=== PATIENT | male | born 1970 | race African-American/Black ===

== ENCOUNTER 2017-06-20 21:26 | Emergency (ER) | payer SELFPAY ==
[~2017-06-20] VITALS: Ht 170.2 cm; Wt 102.1 kg
--- NOTE | 2017-06-20 22:05 | ED Cough/URI ---
General Chief Complaint: Cough/Cold/Flu Symptoms Stated Complaint: HEADACHE Source: patient, spouse Exam Limitations: no limitations History of Present Illness Time seen by provider: 21:55 Initial Comments Patient has ER by private conveyance with his significant other and a chief complaint of 3 days now of nagging headache, dry nonproductive cough, nasal congestion, ears popping feeling underwater but denies facial pain, use of lisinopril or and ARB, nausea, chest pain, shortness of breath, fever, diarrhea , rash. There is a child home who is sick with similar symptoms and was told he has a cold. Allergies and Home Medications Allergies Coded Allergies: iodine (Verified Allergy, Unknown, 06/20/17) Constitutional: chills, No diaphoresis, dizziness, No fever, malaise EENTM: No ear discharge, No hearing loss, No ear pain, No double vision, No eye pain Respiratory: see HPI, cough, No short of breath Cardiovascular: No chest pain, No edema, No palpitations Gastrointestinal: No abdominal pain, No constipation, No nausea, No vomiting Genitourinary: No discharge, No dysuria Musculoskeletal: No back pain, No joint pain, No joint swelling Skin: No pruritus, No rash Psychiatric/Neurological: See HPI, Headache, Denies Numbness, Denies Paresthesia Past Jaxjipw-Czzjxg-Phochd Hx Patient Social History Alcohol Use: Denies Use Recreational Drug Use: No Smoking Status: Never a Smoker Recent Foreign Travel: No Contact w/Someone Who Travel: No Physical Exam Vital Signs Capillary Refill : General Appearance: WD/WN, no apparent distress Eyes: Bilateral Eye Normal Inspection, Bilateral Eye PERRL, Bilateral Eye EOMI HEENT: PERRL/EOMI, pharynx normal, TM abnormal (R) (scant injection with clear mucoid effusion), TM abnormal (L) (scant injection with clear mucoid effusion) Neck: non-tender, normal inspection, lymphadenopathy (R) (shotty), lymphadenopathy (L) (shotty) Respiratory: chest non-tender, lungs clear, normal breath sounds Cardiovascular: normal peripheral pulses, regular rate, rhythm, no edema Gastrointestinal: normal bowel sounds, non tender, soft Extremities: normal range of motion, normal capillary refill Neurologic/Psychiatric: alert, oriented x 3 Skin: normal color, warm/dry Departure Impression Impression: Primary Impression: Upper respiratory infection Qualified Codes: J06.9 - Acute upper respiratory infection, unspecified; B97.89 - Other viral agents as the cause of diseases classified elsewhere Additional Impression: Otitis media with effusion Qualified Codes: H65.93 - Unspecified nonsuppurative otitis media, bilateral Disposition: 01 HOME, SELF-CARE Condition: Stable Departure-Patient Inst. Decision time for Depature: 22:03 Referrals: NO,LOCAL PHYSICIAN (PCP/Family) Primary Care Physician Patient Instructions: Viral Upper Respiratory Infection, Adult (DC) Add. Discharge Instructions: Use Flonase or fluticasone 1 puff each nostril daily for the next 2 weeks. You may also use Zyrtec or Claritin if you're having itching or nasal congestion. Wash her hands thoroughly after touching your face or toileting or before eating. Cold usually last about 5-7 days before they start getting better. The nasal steroid will take one or 2 days before it starts improving your headache and dizziness and ear symptoms. If your symptoms persist for more than 2 weeks or you start having a lot of facial pain or fever above 102.5F you should follow up with your primary care physician for further evaluation. All discharge instructions reviewed with patient and/or family. Voiced understanding. Work/School Note: Work Release Form Date Seen in the Emergency Department: Jun 20, 2017 Return to Work: Jun 21, 2017 Restrictions: No Restrictions NIKOLAS SCHRADER Jun 20, 2017 22:05
[2017-06-20 22:11] VITALS: BP 112/64
== END 2017-06-20 22:11 | disposition home or self-care (01) ==
LOC: ER 21:28
DX: H66.93 Otitis media, unspecified, bilateral; J06.9 Acute upper respiratory infection, unspecified
CPT/HCPCS: 99282

== ENCOUNTER → 2019-01-13 | Outpatient (REF) ==
--- NOTE | 2019-01-13 15:10 | Diagnostic Imaging Report ---
INDICATION: Lifting injury to the low back and pain. TIME OF EXAM: 2:56 p.m. FINDINGS: Three views of the lumbar spine were obtained. Curvature and alignment is normal. Vertebral body heights are well maintained. No acute compression fracture is seen. There is some degenerative disc disease in the lower thoracic spine with anterior osteophyte formation. Disc spaces are fairly well maintained. IMPRESSION: No acute bony abnormality is detected. Dictated by: Dictated on workstation # [id number]
== END | disposition home or self-care (01) ==
LOC: RAD 14:44
PROVIDERS: ATTEND Family Medicine
CPT/HCPCS: 72100

== ENCOUNTER → 2019-02-21 | Outpatient (REF) | payer OTHER ==
--- NOTE | 2019-02-21 15:47 | Diagnostic Imaging Report ---
PROCEDURE: MRI lumbar spine. TECHNIQUE: Multiplanar, multisequence MRI of the lumbar spine was performed without contrast. INDICATION: Bilateral leg pain, back pain, no known discrete injury. COMPARISON: Comparison limited to plain films performed 01/13/2019. FINDINGS: Lumbar statures are normal. The alignment is stable and anatomic. The marrow signal intensity is normal. Pedicles and pars appear intact. The conus appears unremarkable. No focal disc herniation is found. No evidence for ligamentous injury. No impingement upon the thecal sac. The neural foramina and lateral recesses appear patent. IMPRESSION: Unremarkable MRI lumbar spine. Dictated by: Dictated on workstation # [id number]
== END ==
LOC: OCC 14:38 → EDSTATUS 14:45
PROVIDERS: ATTEND Family Medicine
DX: M54.5 Low back pain (principal)
CPT/HCPCS: 72148

== ENCOUNTER 2020-06-06 13:37 | Inpatient (IN) | payer SELFPAY ==
[~2020-06-06] VITALS: Ht 170 cm; Wt 123.2 kg
[2020-06-06] MEDS ORDERED: NS IV 1000 ML 1,000 ML IV SCH ×2 (14:45→20:26)
[2020-06-06] MEDS ORDERED: ONDANSETRON 4 MG/2 ML (SDV) Z0FRAN IVP ONE (14:45)
[2020-06-06] MEDS ORDERED: HYOSCYAMINE 0.125 MG (LEVSIN) TAB PO ONE (14:45)
--- NOTE | 2020-06-06 14:48 | ED GI ---
General Chief Complaint: Abdominal/GI Problems Stated Complaint: ABD PAIN / VOMITING Nursing Triage Note: ARRIVED VIA AMB WITH COMPLAINTS OF N/V/D X2 DAYS. DENIES FEVER, COUGH, OR SOA Sepsis Screen: No Definite Risk Source of Information: Patient Exam Limitations: No Limitations History of Present Illness Date Seen by Provider: Jun 06, 2020 Time Seen by Provider: 14:47 Initial Comments To ER with nausea vomiting diarrhea for 2 days. No fever no cough no shortness of breath. Has some right upper quadrant abdominal pain. Thinks he might have a bad gallbladder. Diarrhea is nonbloody non-mucousy Timing/Duration: 1-2 Days Severity/Quality: Moderate Location: RUQ Radiation: No Radiation Activities at Onset: None Associated Symptoms: Nausea/Vomiting Allergies and Home Medications Allergies Coded Allergies: ibuprofen (Verified Allergy, Severe, RASH, 06/06/20) iodine (Verified Allergy, Unknown, 06/20/17) Home Medications No Active Prescriptions or Reported Meds Patient Home Medication List Home Medication List Reviewed: Yes Review of Systems Review of Systems Constitutional: see HPI; No chills, No fever EENTM: No Symptoms Reported Respiratory: No Symptoms Reported; Denies Cough, Denies SOA at Rest Cardiovascular: No Symptoms Reported Gastrointestinal: See HPI, Abdominal Pain, Diarrhea, Nausea, Vomiting Genitourinary: No Symptoms Reported Musculoskeletal: no symptoms reported Skin: no symptoms reported Psychiatric/Neurological: No Symptoms Reported Endocrine: No Symptoms Reported Hematologic/Lymphatic: No Symptoms Reported Past Rdgkgfh-Vlcees-Artxov Hx Patient Social History Alcohol Use: Denies Use Recreational Drug Use: No Smoking Status: Current Everyday Smoker 2nd Hand Smoke Exposure: No Recent Foreign Travel: No Contact w/Someone Who Travel: No Recent Infectious Disease Expo: No Recent Hopitalizations: No Immunizations Up To Date Tetanus Booster (TDap): Unknown Seasonal Allergies Seasonal Allergies: No Past Medical History Surgeries: No Respiratory: No Cardiac: No Neurological: No Genitourinary: No Gastrointestinal: No Musculoskeletal: No Endocrine: No HEENT: No Cancer: No Psychosocial: No Integumentary: No Blood Disorders: No Physical Exam Vital Signs Vital Signs - First Documented 06/06/20 14:25 Temp 37.1 Pulse 100 Resp 16 B/P (MAP) 134/87 (103) Pulse Ox 97 O2 Delivery Room Air Capillary Refill : Less Than 3 Seconds Height/Weight/BMI Height: 5'7.00" Weight: 225lbs. oz. 102.617874fm; 41.00 BMI Method:Stated General Appearance: WD/WN, no apparent distress HEENT: PERRL/EOMI, normal ENT inspection Respiratory: no respiratory distress, no accessory muscle use Cardiovascular: regular rate, rhythm, no murmur Gastrointestinal: normal bowel sounds, soft, tenderness (right upper quadrant) Extremities: normal range of motion, non-tender Neurologic/Psychiatric: alert, normal mood/affect, oriented x 3 Skin: normal color, warm/dry Progress/Results/Core Measures Results/Orders Lab Results Laboratory Tests Test 06/06/20 14:48 06/06/20 15:30 06/06/20 15:37 Range/Units White Blood Count 16.5 H 4.3-11.0 10^3/uL Red Blood Count 5.72 4.35-5.85 10^6/uL Hemoglobin 17.8 H 13.3-17.7 G/DL Hematocrit 49 40-54 % Mean Corpuscular Volume 85 80-99 FL Mean Corpuscular Hemoglobin 31 25-34 PG Mean Corpuscular Hemoglobin Concent 37 H 32-36 G/DL Red Cell Distribution Width 12.2 10.0-14.5 % Platelet Count 188 130-400 10^3/uL Mean Platelet Volume 12.3 H 7.4-10.4 FL Neutrophils (%) (Auto) 74 42-75 % Lymphocytes (%) (Auto) 18 12-44 % Monocytes (%) (Auto) 7 0-12 % Eosinophils (%) (Auto) 1 0-10 % Basophils (%) (Auto) 0 0-10 % Neutrophils # (Auto) 12.3 H 1.8-7.8 X 10^3 Lymphocytes # (Auto) 2.9 1.0-4.0 X 10^3 Monocytes # (Auto) 1.2 H 0.0-1.0 X 10^3 Eosinophils # (Auto) 0.1 0.0-0.3 10^3/uL Basophils # (Auto) 0.0 0.0-0.1 10^3/uL Neutrophils % (Manual) 70 % Lymphocytes % (Manual) 21 % Monocytes % (Manual) 6 % Eosinophils % (Manual) 2 % Band Neutrophils 1 % Blood Morphology Comment NORMAL Sodium Level 116 *L 135-145 MMOL/L Potassium Level 6.0 H 3.6-5.0 MMOL/L Chloride Level 80 L 98-107 MMOL/L Carbon Dioxide Level 17 L 21-32 MMOL/L Anion Gap 19 H 5-14 MMOL/L Blood Urea Nitrogen 39 H 7-18 MG/DL Creatinine 2.70 H 0.60-1.30 MG/DL Estimat Glomerular Filtration Rate 30 BUN/Creatinine Ratio 14 Glucose Level 1021 *H 70-105 MG/DL Calcium Level 9.4 8.5-10.1 MG/DL Corrected Calcium 9.2 8.5-10.1 MG/DL Total Bilirubin 0.8 0.1-1.0 MG/DL Aspartate Amino Transf (AST/SGOT) 31 5-34 U/L Alanine Aminotransferase (ALT/SGPT) 44 0-55 U/L Alkaline Phosphatase 197 H 40-136 U/L Total Protein 8.8 H 6.4-8.2 GM/DL Albumin 4.3 3.2-4.5 GM/DL Beta-Hydroxybutyrate (Chem panel) 1.87 H 0.00-0.27 MMOL/L Urine Color YELLOW Urine Clarity CLEAR Urine pH 5.5 5-9 Urine Specific [place] <=1.005 1.016-1.022 Urine Protein NEGATIVE NEGATIVE Urine Glucose (UA) 3+ H NEGATIVE Urine Ketones NEGATIVE NEGATIVE Urine Nitrite NEGATIVE NEGATIVE Urine Bilirubin NEGATIVE NEGATIVE Urine Urobilinogen 0.2 < = 1.0 MG/DL Urine Leukocyte Esterase NEGATIVE NEGATIVE Urine RBC (Auto) TRACE-I NEGATIVE Urine RBC 0-2 /HPF Urine WBC 0-2 /HPF Urine Crystals NONE /LPF Urine Bacteria TRACE /HPF Urine Casts NONE /LPF Urine Mucus NEGATIVE /LPF Urine Culture Indicated NO Blood Gas Puncture Site LT RADIAL Blood Gas Patient Temperature 36.7 Arterial Blood pH 7.31 *L 7.37-7.43 Arterial Blood Partial Pressure CO2 41 35-45 MMHG Arterial Blood Partial Pressure O2 86 79-93 MMHG Arterial Blood HCO3 20 L 23-27 MMOL/L Arterial Blood Total CO2 21.2 21.0-31.0 MMOL/L Arterial Blood Oxygen Saturation 95 94-100 % Arterial Blood Base Excess -5.3 L -2.5-2.5 MMOL/L Neto Test YES-POS Blood Gas Ventilator Setting NO Blood Gas Inspired Oxygen UNK My Orders Orders - ZAID LILLY APRN Cbc With Automated Diff (06/06/20 14:39) Comprehensive Metabolic Panel (06/06/20 14:39) Ua Culture If Indicated (06/06/20 14:39) Ed Iv/Invasive Line Start (06/06/20 14:39) Ns Iv 1000 Ml (Sodium Chloride 0.9%) (06/06/20 14:45) Ondansetron Injection (Zofran Injectio (06/06/20 14:45) Hyoscyamine Sl Tablet (Levsin Sl Tablet) (06/06/20 14:45) Ct Abdomen/Pelvis Wo (06/06/20 14:45) Manual Differential (06/06/20 14:48) Ekg Tracing (06/06/20 15:05) Beta Hydroxybutyrate (06/06/20 15:29) Insulin Regular Drip (Myxredlin 100 Unit (06/06/20 15:30) Insulin (Regular) Human (Novolin R (Per (06/06/20 15:30) Hemoglobin A1c (06/06/20 15:39) Arterial Blood Gas (06/06/20 15:39) Medications Given in ED Current Medications Medications Dose Ordered Sig/Todd Route Start Time Stop Time Status Last Admin Dose Admin Hyoscyamine Sulfate 0.25 mg ONCE ONCE PO 06/06/20 14:45 06/06/20 14:46 DC 06/06/20 14:59 0.25 MG Insulin Human Regular 10 unit ONCE ONCE SC 06/06/20 15:30 06/06/20 15:31 DC 06/06/20 15:53 10 UNIT Ondansetron HCl 8 mg ONCE ONCE IVP 06/06/20 14:45 06/06/20 14:46 DC 06/06/20 14:59 8 MG Vital Signs/I&O 06/06/20 14:25 Temp 37.1 Pulse 100 Resp 16 B/P (MAP) 134/87 (103) Pulse Ox 97 O2 Delivery Room Air Blood Pressure Mean: 103 Departure Communication (Admissions) Time/Spoke to Admitting Phy: 16:[address] Pal, agrees to admit. I discussed the blood sugar with the patient. He states "it isn't warm been so thirsty and peeing all the time?" He does not know himself to be a diabetic. He states that it does run in his family. I don't have any prior labs for comparison. On EKG he does have T waves but does not have any bradycardia, sine waves, widened QRS complex or any atrioventricular block. Impression Primary Impression: Hyperglycemia Additional Impression: Nausea vomiting and diarrhea Disposition: ADMITTED INPATIENT Condition: Stable Admissions Decision to Admit Reason: Admit from ER (General) Decision to Admit/Date: Jun 06, 2020 Time/Decision to Admit Time: 16:23 Departure-Patient Inst. Referrals: NO,LOCAL PHYSICIAN (PCP/Family) Primary Care Physician Scripts No Active Prescriptions or Reported Meds ZAID LILLY APRN Jun 06, 2020 14:48
[2020-06-06 14:56] LABS: BASOPHILS % (AUTO) 0 % (0-10); EOSINOPHILS # (AUTO) 0.1 10^3/uL (0.0-0.3); EOSINOPHILS % (AUTO) 1 % (0-10); HEMATOCRIT 49 % (40-54); HEMOGLOBIN 17.8 G/DL (13.3-17.7); LYMPHOCYTES # (AUTO) 2.9 X 10^3 (1.0-4.0); LYMPHOCYTES % (AUTO) 18 % (12-44); MEAN CORPUSCULAR HEMOGLOBIN 31 PG (25-34); MEAN CORPUSCULAR HGB CONC 37 G/DL (32-36); MEAN CORPUSCULAR VOLUME 85 FL (80-99); MEAN PLATELET VOLUME 12.3 FL (7.4-10.4); MONOCYTES # (AUTO) 1.2 X 10^3 (0.0-1.0); MONOCYTES % (AUTO) 7 % (0-12); NEUTROPHILS # (AUTO) 12.3 X 10^3 (1.8-7.8); NEUTROPHILS % (AUTO) 74 % (42-75); PLATELET COUNT 188 10^3/uL (130-400); WHITE BLOOD COUNT 16.5 10^3/uL (4.3-11.0)
[2020-06-06 15:02] LABS: ALBUMIN 4.3 GM/DL (3.2-4.5)
[2020-06-06 15:03] LABS: CALCIUM 9.4 MG/DL (8.5-10.1)
[2020-06-06 15:05] LABS: TOTAL PROTEIN 8.8 GM/DL (6.4-8.2)
[2020-06-06 15:06] LABS: BILIRUBIN,TOTAL 0.8 MG/DL (0.1-1.0)
[2020-06-06 15:08] LABS: CREATININE SERUM 2.7 MG/DL (0.60-1.30)
[2020-06-06 15:21] LABS: BAND NEUTROPHILS 1 %; EOSINOPHILS % (MANUAL) 2 %; LYMPHOCYTES % (MANUAL) 21 %; MONOCYTES % (MANUAL) 6 %; NEUTROPHILS % (MANUAL) 70 %; RBC MORPH NORMAL
[2020-06-06] MEDS ORDERED: inSUlin (REGULAR) HUMAN 1 UNIT/0.01 ML (CHARGE PER UNIT) SC ONE (15:30)
[2020-06-06 15:41] LABS: BILIRUBIN,URINE NEGATIVE (NEGATIVE); CLARITY,URINE CLEAR; COLOR,URINE YELLOW; GLUCOSE, URINE (UA) 3+ (NEGATIVE); KETONES,URINE NEGATIVE (NEGATIVE); LEUKOCYTE ESTERASE ,URINE NEGATIVE (NEGATIVE); NITRITE,URINE NEGATIVE (NEGATIVE); PH,URINE 5.5 (5-9); PROTEIN,URINE NEGATIVE (NEGATIVE)
[2020-06-06 15:43] LABS: ABG BASE EXCESS -5.3 MMOL/L (-2.5-2.5); ABG OXYGEN SATURATION 95 % (94-100); ABG PCO2 41 MMHG (35-45); ABG PO2 86 MMHG (79-93); ABG TCO2 21.2 MMOL/L (21.0-31.0)
[2020-06-06 15:45] LABS: ABG PH 7.31 (7.37-7.43); ALLENS TEST YES-POS; PATIENT TEMP 36.7; VENTILATOR NO
[2020-06-06 15:56] LABS: BACTERIA,URINE TRACE /HPF; RBC,URINE 0-2 /HPF; WBC,URINE 0-2 /HPF
--- NOTE | 2020-06-06 16:05 | Diagnostic Imaging Report ---
PROCEDURE: CT abdomen and pelvis without contrast. TECHNIQUE: Multiple contiguous axial images were obtained through the abdomen and pelvis without the use of intravenous contrast. Auto Exposure Controls were utilized during the CT exam to meet ALARA standards for radiation dose reduction. INDICATION: Right upper quadrant pain. Nausea and vomiting. COMPARISON: None. FINDINGS: The heart is unremarkable. The included lung bases are clear. There is hepatic steatosis. The spleen, pancreas, adrenal glands, and kidneys have a normal appearance. There is no pathologically enlarged mesenteric or retroperitoneal adenopathy. The bowel loops are nondilated. The appendix is visualized in the right lower quadrant and has a normal appearance. There is no free fluid or free air. No acute osseous abnormality. There is calcified aortic and iliac atherosclerotic plaque without aneurysm. Ureters and bladder are grossly normal. There is no free air, loculated collection or adenopathy in the pelvis. IMPRESSION: 1. Hepatic steatosis. 2. No acute inflammatory change in the abdomen or pelvis. Dictated by: Dictated on workstation # [id number]
--- NOTE | 2020-06-06 17:00 | NUR ---
BLOOD SUGAR READS HIGH.
[2020-06-06 18:13] VITALS: BP 120/99
[2020-06-06] MEDS ORDERED: LACTULOSE SYRUP 10GM/15ML (ENULOSE) 30ML UDC PO PRN (18:45)
[2020-06-06] MEDS ORDERED: ENOXAPARIN 40 MG/0.4 ML (LOVENOX) SYR SC SCH (18:45)
[2020-06-06] MEDS ORDERED: MELATONIN 3 MG TABLET PO PRN (18:45)
[2020-06-06] MEDS ORDERED: ONDANSETRON 4 MG (ZOFRAN) ORAL DISSOLVE TAB PO PRN (18:45)
[2020-06-06] MEDS ORDERED: HYDROcodone/APAP 5 MG/325 MG (LORTAB) TAB PO PRN (18:45)
[2020-06-06] MEDS ORDERED: DOCUSATE SODIUM 100 MG (COLACE) CAP PO PRN (18:45)
[2020-06-06] MEDS ORDERED: diphenhydrAMINE 25 MG TAB (BENADRYL) PO PRN (18:45)
[2020-06-06] MEDS ORDERED: polyethylene glycoL POWDER 17 GM (MIRALAX) PACK PO PRN (18:45)
[2020-06-06] MEDS ORDERED: ONDANSETRON 4 MG/2 ML (SDV) Z0FRAN IVP PRN (18:45)
[2020-06-06] MEDS ORDERED: ALPRAZolam 0.25 MG (XANAX) TAB PO PRN (18:45)
[2020-06-06] MEDS ORDERED: ACETAMINOPHEN 500 MG TAB (TYLENOL) PO PRN (18:45)
[2020-06-06] MEDS ORDERED: SENNA W/DOCUSATE (SENOKOT S) TABLET PO PRN (18:45)
[2020-06-06] MEDS ORDERED: CALCIUM CARBONATE 500 MG (TUMS) TAB.CHEW PO PRN (18:45)
[2020-06-06 20:00] VITALS: BP 143/105
[2020-06-06] MEDS ORDERED: ENOXAPARIN 40 MG/0.4 ML (LOVENOX) SYR ONE (20:29)
[2020-06-06] MEDS ORDERED: 1/2 NS IV SOLUTION 1,000 ML IV ONE (20:29)
[2020-06-06] MEDS ORDERED: POTASSIUM CL 10MEQ/50ML IVPB 50 ML IV SCH (20:30)
[2020-06-06] MEDS ORDERED: D5 1/2 NS 1000 ML IV SOLUTION 1,000 ML IV SCH (20:30)
[2020-06-06] MEDS: 1/2 NS IV SOLUTION 1,000 ML IV SCH (20:42)
[2020-06-06 21:00] VITALS: BP 127/97
[2020-06-06] MEDS ORDERED: NICOTINE 14 MG (NICODERM) PATCH TD SCH (21:00)
[2020-06-06 21:13] LABS: CALCIUM 10.1 MG/DL (8.5-10.1); CREATININE SERUM 2.79 MG/DL (0.60-1.30); POTASSIUM 4.2 MMOL/L (3.6-5.0)
[2020-06-06] MEDS ORDERED: GABAPENTIN 100 MG (NEURONTIN) CAP ONE (21:44)
[2020-06-06] MEDS ORDERED: NICOTINE 14 MG (NICODERM) PATCH TD ONE (21:44)
[2020-06-06] MEDS ORDERED: guaiFENesin/DM (ROBITUSSIN DM) 10 ML UDC PO PRN (21:45)
[2020-06-06] MEDS ORDERED: LORazepam 0.5 MG (ATIVAN) TABLET PO PRN (21:45)
[2020-06-06] MEDS: GABAPENTIN 100 MG (NEURONTIN) CAP PO SCH (21:52)
[2020-06-06 22:00] VITALS: BP 127/87
[2020-06-06] MEDS ORDERED: fentaNYL INJECTION 100 MCG/2 ML AMP IVP PRN (22:45)
[2020-06-06] MEDS ORDERED: PROMETHAZINE INJ 25 MG/ML (PHENERGAN) AMP IVP PRN (22:45)
[2020-06-06 22:59] LABS: POTASSIUM 3.9 MMOL/L (3.6-5.0)
[2020-06-06 23:00] VITALS: BP 137/96
[2020-06-06 23:00] LABS: CALCIUM 9.4 MG/DL (8.5-10.1)
[2020-06-06 23:04] LABS: CREATININE SERUM 2.36 MG/DL (0.60-1.30)
[2020-06-06] MEDS: POTASSIUM CL 10MEQ/50ML IVPB 50 ML IV SCH (23:25)
[2020-06-07] VITALS (14 sets, daily range): BP systolic 108–148; BP diastolic 70–108
[2020-06-07] MEDS: 1/2 NS IV SOLUTION 1,000 ML IV SCH ×4 (00:22→09:11)
[2020-06-07] MEDS: POTASSIUM CL 10MEQ/50ML IVPB 50 ML IV SCH ×6 (01:23→09:04)
[2020-06-07 03:34] LABS: BASOPHILS # (AUTO) 0.1 10^3/uL (0.0-0.1); BASOPHILS % (AUTO) 0 % (0-10); EOSINOPHILS # (AUTO) 0.2 10^3/uL (0.0-0.3); EOSINOPHILS % (AUTO) 1 % (0-10); HEMATOCRIT 47 % (40-54); HEMOGLOBIN 17.7 G/DL (13.3-17.7); LYMPHOCYTES # (AUTO) 4.7 X 10^3 (1.0-4.0); LYMPHOCYTES % (AUTO) 27 % (12-44); MEAN CORPUSCULAR HEMOGLOBIN 32 PG (25-34); MEAN CORPUSCULAR HGB CONC 37 G/DL (32-36); MEAN CORPUSCULAR VOLUME 85 FL (80-99); MEAN PLATELET VOLUME 12.4 FL (7.4-10.4); MONOCYTES # (AUTO) 1.5 X 10^3 (0.0-1.0); MONOCYTES % (AUTO) 9 % (0-12); NEUTROPHILS # (AUTO) 11.1 X 10^3 (1.8-7.8); NEUTROPHILS % (AUTO) 63 % (42-75); PLATELET COUNT 151 10^3/uL (130-400); WHITE BLOOD COUNT 17.5 10^3/uL (4.3-11.0)
[2020-06-07 03:49] LABS: POTASSIUM 3.5 MMOL/L (3.6-5.0)
[2020-06-07 03:50] LABS: CALCIUM 8.9 MG/DL (8.5-10.1)
[2020-06-07 03:54] LABS: CREATININE SERUM 2.18 MG/DL (0.60-1.30); PHOSPHORUS 4.4 MG/DL (2.3-4.7)
--- NOTE | 2020-06-07 05:31 | NUR ---
This RN notified EICU of patient's potassium level of 3.5, despite DKA protocol Potassium infusing at 5 MEQ/hr. This RN unable to replace per ICU Protocol due to elevated kidney levels: BUN 38 and Creatnine 2.18. New order received to replace with 20 MEQ Potassium IV, see order hx.
[2020-06-07] MEDS ORDERED: MAGNESIUM 1 GM/100 ML IVPB 100 ML IV SCH (06:00)
[2020-06-07] MEDS ORDERED: KCL 20 MEQ TAB (K-DUR) PO SCH (06:00)
[2020-06-07] MEDS ORDERED: POTASSIUM CL 10MEQ/50ML IVPB 50 ML IV SCH (06:00)
--- NOTE | 2020-06-07 06:48 | History & Physical-Hospitalist ---
History of Present Illness HPI/Chief Complaint CC: [email or web address] HPI: This is a 49yoAAM who presents to the ER with weakness and polyuria and polydipsia and was found to have severely high sugar with new onset DM. Patient had sugar of 1021 and slightly acidotic mostly from ARF but was placed on an insulin drip and is currently doing very well. Patient is requesting education on how to give himself insulin injections. Patient feels much better. Source: patient Exam Limitations: no limitations Date Seen 06/07/20 Time Seen by a Provider: 10:30 Attending Physician Maylin Pal DO PCP No,Local Physician Referring Physician Date of Admission Jun 06, 2020 at 16:00 Home Medications & Allergies Home Medications Reviewed patient Home Medication Reconciliation performed by pharmacy medication reconciliations dental lab technician and/or nursing. Patients Allergies have been reviewed. Allergies Allergies Coded Allergies ibuprofen (Verified Allergy, Severe, RASH, 06/06/20) iodine (Verified Allergy, Unknown, 06/20/17) Past Egywuzw-Riwbfz-Hituti Hx Past Med/Social Hx: Reviewed Nursing Past Med/Soc Hx, Reviewed and Corrections made Patient Social History Marrital Status: single Employed/Student: unemployed Alcohol Use: Denies Use Recreational Drug Use: No Smoking Status: Current Everyday Smoker 2nd Hand Smoke Exposure: No Recent Foreign Travel: No Contact w/other who traveled: No Recent Hopitalizations: No Recent Infectious Disease Expo: No Immunizations Up To Date Tetanus Booster (TDap): Unknown Seasonal Allergies Seasonal Allergies: No Past Medical History History of Blood Disorders: No Review of Systems Constitutional: see HPI, malaise, weakness Genitourinary: frequency, nocturia Physical Exam Physical Exam Vital Signs Vital Signs - First Documented 06/06/20 14:25 Temp 37.1 Pulse 100 Resp 16 B/P (MAP) 134/87 (103) Pulse Ox 97 O2 Delivery Room Air Capillary Refill : Less Than 3 Seconds Height, Weight, BMI Height: 5'7.00" Weight: 225lbs. oz. 102.283386td; 41.00 BMI Method:Stated General Appearance: No Apparent Distress Eyes: Right Eye Normal Inspection, Right Eye PERRL HEENT: PERRL/EOMI, TMs Normal, Normal ENT Inspection, Pharynx Normal, Moist Mucous Membranes Neck: Full Range of Motion, Normal Inspection, Non Tender Respiratory: Chest Non Tender, Lungs Clear, Normal Breath Sounds, No Accessory Muscle Use, No Respiratory Distress Cardiovascular: Regular Rate, Rhythm, No Edema, No Gallop, No JVD, No Murmur, Normal Peripheral Pulses Gastrointestinal: Normal Bowel Sounds, No Organomegaly, No Pulsatile Mass, Non Tender, Soft Back: Normal Inspection, No CVA Tenderness, No Vertebral Tenderness Extremity: Normal Capillary Refill, Normal Inspection, Normal Range of Motion, Non Tender, No Calf Tenderness, No Pedal Edema Neurologic/Psychiatric: Alert, Oriented x3, No Motor/Sensory Deficits, Normal Mood/Affect Skin: Normal Color, Warm/Dry Lymphatic: No Adenopathy Results Results/Procedures Labs Laboratory Tests 06/06/20 14:48 06/06/20 17:51 06/06/20 20:48 06/06/20 22:30 06/07/20 03:15 06/07/20 10:59 Patient resulted labs reviewed. Assessment/Plan Admission Diagnosis Assessment: Hyperglycemic Hyperosmolar non-ketotic state Obesity Smoker ARF Plan: IVF Insulin drip SQ insulin education Admission Status: Inpatient Order (span 2 midnights) Reason for Inpatient Admission: severe high sugar Diagnosis/Problems Diagnosis/Problems (1) HHNC (hyperglycemic hyperosmolar nonketotic coma) (2) Smoker (3) Hyperglycemia Status: Acute (4) Nausea vomiting and diarrhea Status: Acute Clinical Quality Measures DVT/VTE Risk/Contraindication: Risk Factor Score Per Nursin RFS Level Per Nursing on Admit: 2=Moderate MAYLIN PAL DO Jun 07, 2020 06:48
--- NOTE | 2020-06-07 08:07 | Diagnostic Imaging Report ---
INDICATION: Dyspnea. FINDINGS: The heart size, mediastinal configuration, and pulmonary vascularity are within normal limits. There is no pleural effusion, pneumothorax, or pneumonia. The osseous structures are unremarkable. IMPRESSION: No acute cardiopulmonary abnormality. Dictated by: Dictated on workstation # [id number]
[2020-06-07] MEDS: ENOXAPARIN 40 MG/0.4 ML (LOVENOX) SYR SC SCH ×2 (09:04→21:03)
[2020-06-07] MEDS: GABAPENTIN 100 MG (NEURONTIN) CAP PO SCH ×3 (09:04→21:04)
[2020-06-07] MEDS: NICOTINE 14 MG (NICODERM) PATCH TD SCH (09:04)
[2020-06-07] MEDS: PATCH REMOVAL TP SCH (09:05)
[2020-06-07 11:29] LABS: CALCIUM 8.8 MG/DL (8.5-10.1); CREATININE SERUM 1.6 MG/DL (0.60-1.30); POTASSIUM 3.8 MMOL/L (3.6-5.0)
[2020-06-07] MEDS: inSUlin (REGULAR) HUMAN 1 UNIT/0.01 ML (CHARGE PER UNIT) SC SCH ×2 (12:06→17:38)
--- NOTE | 2020-06-07 13:42 | NUR ---
PT TRANSFERRED TO ROOM 508 VIA AMBULATION W/ STAFF AND PERSONAL BELONGINGS. WILL CONT TO MONITOR PT.
--- NOTE | 2020-06-07 20:23 | NUR ---
This RN notified Dr. Pal of patient's blood sugar of 336, no HS order for insulin. New order received for Levemir 40 units now and HS and Novolog 20 units X1 NOW. See order hx.
[2020-06-07] MEDS ORDERED: inSUlin ASPART (NovoLOG) 1 UNIT/0.01 ML (CHARGE PER UNIT) ONE (20:52)
[2020-06-07] MEDS ORDERED: inSUlin ASPART (NovoLOG) 1 UNIT/0.01 ML (CHARGE PER UNIT) SC ONE (21:00)
[2020-06-08] VITALS: BP 113/73
[2020-06-08 04:00] VITALS: BP 104/70
[2020-06-08 04:33] LABS: BASOPHILS % (AUTO) 0 % (0-10); EOSINOPHILS # (AUTO) 0.1 10^3/uL (0.0-0.3); EOSINOPHILS % (AUTO) 1 % (0-10); HEMATOCRIT 44 % (40-54); HEMOGLOBIN 15.7 G/DL (13.3-17.7); LYMPHOCYTES # (AUTO) 3.4 X 10^3 (1.0-4.0); LYMPHOCYTES % (AUTO) 28 % (12-44); MEAN CORPUSCULAR HEMOGLOBIN 31 PG (25-34); MEAN CORPUSCULAR HGB CONC 36 G/DL (32-36); MEAN CORPUSCULAR VOLUME 87 FL (80-99); MEAN PLATELET VOLUME 12.1 FL (7.4-10.4); MONOCYTES # (AUTO) 1.2 X 10^3 (0.0-1.0); MONOCYTES % (AUTO) 10 % (0-12); NEUTROPHILS # (AUTO) 7.4 X 10^3 (1.8-7.8); NEUTROPHILS % (AUTO) 61 % (42-75); PLATELET COUNT 148 10^3/uL (130-400); WHITE BLOOD COUNT 12.1 10^3/uL (4.3-11.0)
[2020-06-08 04:45] LABS: ALBUMIN 3.4 GM/DL (3.2-4.5); CHLORIDE 102 MMOL/L (98-107); POTASSIUM 3.7 MMOL/L (3.6-5.0); SODIUM 132 MMOL/L (135-145)
[2020-06-08 04:46] LABS: CALCIUM 8.8 MG/DL (8.5-10.1)
[2020-06-08 04:47] LABS: GLUCOSE 140 MG/DL (70-105); TOTAL PROTEIN 6.9 GM/DL (6.4-8.2)
[2020-06-08 04:48] LABS: CARBON DIOXIDE 18 MMOL/L (21-32)
[2020-06-08 04:49] LABS: BILIRUBIN,TOTAL 0.4 MG/DL (0.1-1.0)
[2020-06-08 04:51] LABS: ALKALINE PHOSPHATASE 146 U/L (40-136); CREATININE SERUM 1.46 MG/DL (0.60-1.30); GFR ESTIMATED > 60
[2020-06-08 04:52] LABS: BUN/CREATININE RATIO 17
[2020-06-08 04:54] LABS: ALANINE AMINOTRANSFERASE 46 U/L (0-55)
[2020-06-08 07:50] VITALS: BP 122/73
[2020-06-08] MEDS: ENOXAPARIN 40 MG/0.4 ML (LOVENOX) SYR SC SCH (07:54)
[2020-06-08] MEDS: GABAPENTIN 100 MG (NEURONTIN) CAP PO SCH ×2 (07:54→12:02)
[2020-06-08] MEDS: NICOTINE 14 MG (NICODERM) PATCH TD SCH (07:55)
[2020-06-08] MEDS: inSUlin (REGULAR) HUMAN 1 UNIT/0.01 ML (CHARGE PER UNIT) SC SCH ×2 (07:55→11:58)
[2020-06-08] MEDS: PATCH REMOVAL TP SCH (07:55)
[2020-06-08] MEDS ORDERED: LORA-404 PO (09:27)
[2020-06-08] MEDS ORDERED: ATOR20TA66 PO (09:27)
[2020-06-08] MEDS ORDERED: CETI10TA21 PO (09:27)
[2020-06-08] MEDS ORDERED: MONT10TA26 PO (09:27)
[2020-06-08] MEDS ORDERED: NABU750T PO (09:27)
[2020-06-08] MEDS ORDERED: FAMO-119 PO (09:27)
[2020-06-08] MEDS ORDERED: GABA-486 PO (09:27)
[2020-06-08] MEDS ORDERED: TRM50T PO (09:27)
[2020-06-08] MEDS ORDERED: VARE1TAB22 PO (09:27)
--- NOTE | 2020-06-08 09:29 | NUR ---
I SPOKE WITH THE PT (HE HAD HIS HOME MEDS WITH HIM) TO COMPLETE THE MED REC THE FOLLOWING ARE FILL DATES FROM [facility]: 03-15-2020 CHANTIX 1MG #56/PRN 03-19-2020 LORAZEPAM 0.5MG #56/PRN 03-19-2020 ZYRTEC 10MG #30/PRN 03-19-2020 NABUMETONE 750MG #60/PRN 03-19-2020 FAMOTIDINE 20MG #60/PRN 03-19-2020 ATORVASTATIN 20MG #30/30DS- I DID DOCUMENT THE PAST DUE FILL ON THE MED REC 04-16-2020 TRAMADOL 50MG #84/PRN 04-16-2020 MONTELUKAST 10MG #30/PRN 04-16-2020 GABAPENTIN 100MG #90/PRN PT INDICATES MOST MEDICATIONS HE ONLY TAKES NEEDED
[2020-06-08] MEDS ORDERED: INSU100I29 SQ (09:33)
[2020-06-08] MEDS ORDERED: INSU100I14 SQ (09:33)
[2020-06-08] MEDS ORDERED: PEN-53 MC (09:33)
--- NOTE | 2020-06-08 09:34 | Discharge Summary ---
Discharge Summary Hospital Course Was the Problem List Reviewed?: Yes Problems/Dx: (1) HHNC (hyperglycemic hyperosmolar nonketotic coma) (2) Smoker (3) Hyperglycemia Status: Acute (4) Nausea vomiting and diarrhea Status: Acute Hospital Course Date of Admission: Jun 06, 2020 at 16:00 Admission Diagnosis : Family Physician/Provider: No,Local Physician Date of Discharge: 06/08/20 Discharge Diagnosis: Assessment: Hyperglycemic Hyperosmolar non-ketotic state Obesity Smoker ARF Plan: IVF Insulin drip SQ insulin education Hospital Course: Hospital Course: Pt had a short hospital course. He was admitted for extremely high sugar of 1021 and severe dehydration and acute renal failure. He was placed on insulin drip and aggressive IV fluids and creatinine ultimately came down to 1.7 and 1.4 at day of discharge. He transitioned to subQ Insulin of Levemir 40 units twice daily and Novalog 20 units before meals and has a close follow up with PCP at [facility]. Labs and Pending Lab Test: Laboratory Tests 06/07/20 10:03: Glucometer 272H 06/07/20 10:59: Sodium Level 129L, Potassium Level 3.8, Chloride Level 100, Carbon Dioxide Level 18L, Anion Gap 11, Blood Urea Nitrogen 33H, Creatinine 1.60H, Estimat Glomerular Filtration Rate 56, BUN/Creatinine Ratio 21, Glucose Level 215H, Calcium Level 8.8 06/07/20 11:03: Glucometer 194H 06/07/20 16:31: Glucometer 327H 06/07/20 20:17: Glucometer 336H 06/08/20 03:39: White Blood Count 12.1H, Red Blood Count 5.05, Hemoglobin 15.7, Hematocrit 44, Mean Corpuscular Volume 87, Mean Corpuscular Hemoglobin 31, Mean Corpuscular Hemoglobin Concent 36, Red Cell Distribution Width 12.1, Platelet Count 148, Mean Platelet Volume 12.1H, Neutrophils (%) (Auto) 61, Lymphocytes (%) (Auto) 28, Monocytes (%) (Auto) 10, Eosinophils (%) (Auto) 1, Basophils (%) (Auto) 0, Neutrophils # (Auto) 7.4, Lymphocytes # (Auto) 3.4, Monocytes # (Auto) 1.2H, Eosinophils # (Auto) 0.1, Basophils # (Auto) 0.0, Sodium Level 132L, Potassium Level 3.7, Chloride Level 102, Carbon Dioxide Level 18L, Anion Gap 12, Blood Urea Nitrogen 25H, Creatinine 1.46H, Estimat Glomerular Filtration Rate > 60, BUN/Creatinine Ratio 17, Glucose Level 140H, Calcium Level 8.8, Corrected Calcium 9.3, Total Bilirubin 0.4, Aspartate Amino Transf (AST/SGOT) 48H, Alanine Aminotransferase (ALT/SGPT) 46, Alkaline Phosphatase 146H, Total Protein 6.9, Albumin 3.4 Home Meds Active Advocate Pen Needle (Pen Needle, Diabetic) 1 Each Dis.needle Each ACHS Novolog Flexpen (Insulin Aspart) 300 Units/3 Ml Solution 20 Units SQ AC Levemir Flextouch (Insulin Detemir) 100 Unit/1 Ml Insuln.pen 40 Unit SQ BID Reported Ativan (Lorazepam) 0.5 Mg Tablet 0.5 Mg PO HS PRN Gabapentin 100 Mg Capsule 100 Mg PO TID PRN Montelukast Sodium 10 Mg Tablet 10 Mg PO DAILY PRN Zyrtec (Cetirizine HCl) 10 Mg Tablet 10 Mg PO DAILY PRN Atorvastatin Calcium 20 Mg Tablet 20 Mg PO DAILY LAST FILLED 03-19-2020 #30 Chantix (Varenicline Tartrate) 1 Mg Tablet 1 Mg PO BID PRN Pepcid (Famotidine) 20 Mg Tablet 20 Mg PO BID PRN Tramadol HCl 50 Mg Tablet 50 Mg PO DAILY PRN Nabumetone 750 Mg Tablet 750 Mg PO BID PRN Assessment/Pt Instructions chc this week Discharge Planning: <30 minutes discharge planning Discharge Instructions Discharge Diet: Regular Diet Activity as Tolerated: Yes Pneumonia Vaccine Order Indica: Yes Discharge Physical Examination Vital Signs Vital Signs Date Time Temp Pulse Resp B/P (MAP) Pulse Ox O2 Delivery O2 Flow Rate FiO2 06/08/20 09:00 Room Air 06/08/20 07:50 35.9 89 16 122/73 (89) 95 General Appearance: No Apparent Distress, WD/WN Respiratory: Normal Breath Sounds Cardiovascular: Regular Rate, Rhythm Neurologic/Psychiatric: Alert, Oriented x3 Allergies: Coded Allergies: ibuprofen (Verified Allergy, Severe, RASH, 06/06/20) iodine (Verified Allergy, Unknown, 06/20/17) Discharge Summary Date of Admission Jun 06, 2020 at 16:00 Date of Discharge Discharge Date: Jun 08, 2020 Admission Diagnosis Assessment: Hyperglycemic Hyperosmolar non-ketotic state Obesity Smoker ARF Plan: IVF Insulin drip SQ insulin education Discharge Diagnosis (1) HHNC (hyperglycemic hyperosmolar nonketotic coma) (2) Smoker (3) Hyperglycemia Status: Acute (4) Nausea vomiting and diarrhea Status: Acute Clinical Quality Measures DVT/VTE Risk/Contraindication: Risk Factor Score Per Nursin RFS Level Per Nursing on Admit: 2=Moderate MELINA CHERRY DO Jun 08, 2020 09:34
--- NOTE | 2020-06-08 11:30 | NUR ---
THIS NURSE TALKED EXTENSIVELY WITH PT ABOUT DIABETES EDUCATIONS, DM DIET, HOME MEDICATIONS, AND HOW TO GIVE INSULIN. PT ADMINISTERED INSULIN WITH THE NURSE AT BEDSIDE. PT STATED UNDERSTANDING. THIS NURSE SCHEDULED AN APPOINTMENT WITH DR CHAMBERS THIS SUNDAY. PT STATED HE WILL BE THERE.
[2020-06-08 12:21] VITALS: BP 122/73
--- NOTE | 2020-06-08 15:24 | NUR ---
"RD ASSESSMENT PMHx: new onset DM PT INTERACTION: Pt was awake and pleasant during consult for diet education (new onset DM). Pt states current appetite is good. Note avg PO intake >75% meals, per chart review. Pt states following a regular diet at home, and has no issues with chewing/swallowing food. Pt states some recent issues with nausea and vomiting. Pt states no recent issues with constipation or diarrhea, and that his last BM was 9/5. Note pt currently on bowel regimen of colace PRN, miralax PRN, and senna PRN, per chart review. Pt states recent wt loss, but unsure of amount/timeframe. Note unable to determine recent wt hx, per chart review. ABNORMAL NUTRITION-RELATED LAB VALUES LOW: Na 132; HIGH: BUN 25; cr 1.46; glu 140; AST 48; alkphos 146 Est. kcal needs: 1850 kcal | 15 kcal/kg Est. Pro needs: 99 g Pro | 0.8 g Pro/kg PES STATEMENT: Food- and nutrition-related knowledge deficit (NB-1.1) related to lack of prior nutrition-related recommendations as evidenced by pt interview | new onset of DM INTERVENTION: Continue with current diet order of CHO 60g/m 0snack diet. Offered and provided diet education on DM management. Discussed and provided handout on CHO counting. Discussed portion control, fiber intake, protein, and smartphone applications. Pt verbalized understanding of information provided. Provided pt with contact information should he have questions upon discharge. Will continue to follow and reassess as pt needs, intake, and status change. MONITOR/EVALUATE: PO Intake; Plan of Care; Hydration Status; Weight Status; Lab Values Hallie Barrett, MS, RD, LD"
== END 2020-06-08 12:11 | disposition home or self-care (01) | DRG 682 ==
LOC: EDUNIT# 13:37 → ER 13:38 → ICU 16:00 → CSD 06-07 14:00
PROVIDERS: ADMIT Internal Medicine; ATTEND Internal Medicine
DX: N17.9 Acute kidney failure, unspecified (principal); E11.00 Type 2 diabetes mellitus with hyperosmolarity without nonketotic hyperglycemic-hyperosmolar coma (NKHHC); Z68.41 Body mass index [BMI] 40.0-44.9, adult; E86.0 Dehydration; E66.9 Obesity, unspecified; Z79.4 Long term (current) use of insulin
CPT/HCPCS: 36415; 71045; 74176; 80048; 80053; 81000; 82010; 82805; 82947; 82962; 83036; 83735; 84100; 85007; 85025; 85027; 93005; 99291

== ENCOUNTER → 2021-11-01 | Outpatient (CLI) | payer OTHER ==
[~2021-11-01] MED LIST: ATOR20TA66 PO; CETI10TA49 PO; FAMO-119 PO; GABA-486 PO; INSU100I14 SQ; INSU100I29 SQ; LORA-404 PO; MONT-40 PO; NABU-95 PO; PEN-53 MC; TRM50T PO; VARE1TAB22 PO
== END ==
LOC: CARD 12:14
DX: Z01.810 Encounter for preprocedural cardiovascular examination (principal)

== ENCOUNTER → 2021-11-01 | Outpatient (CLI) | payer OTHER ==
[2021-11-01 11:06] LABS: BASOPHILS % (AUTO) 1 % (0-10); HEMOGLOBIN 16.8 g/dL (13.3-17.7); MEAN PLATELET VOLUME 10.2 fL (9.0-12.2); NEUTROPHILS % (AUTO) 68 % (42-75)
[2021-11-01 11:08] LABS: BASOPHILS # (AUTO) 0.1 10^3/uL (0.0-0.1); EOSINOPHILS # (AUTO) 0.1 10^3/uL (0.0-0.3); EOSINOPHILS % (AUTO) 1 % (0-10); HEMATOCRIT 49 % (40-54); LYMPHOCYTES # (AUTO) 3.3 10^3/uL (1.0-4.0); LYMPHOCYTES % (AUTO) 23 % (12-44); MEAN CORPUSCULAR HEMOGLOBIN 33 pg (25-34); MEAN CORPUSCULAR HGB CONC 34 g/dL (32-36); MEAN CORPUSCULAR VOLUME 95 fL (80-99); MONOCYTES % (AUTO) 7 % (0-12); NEUTROPHILS # (AUTO) 9.6 10^3/uL (1.8-7.8); PLATELET COUNT 142 10^3/uL (130-400); WHITE BLOOD COUNT 14.1 10^3/uL (4.3-11.0)
[2021-11-01 11:24] LABS: CALCIUM 9.3 MG/DL (8.5-10.1); CREATININE SERUM 0.99 MG/DL (0.60-1.30); POTASSIUM 3.9 MMOL/L (3.6-5.0)
[2021-11-01 11:28] LABS: BAND NEUTROPHILS 0 %; BASOPHILS % (MANUAL) 0 %; EOSINOPHILS % (MANUAL) 1 %; LYMPHOCYTES % (MANUAL) 26 %; MONOCYTES % (MANUAL) 9 %; NEUTROPHILS % (MANUAL) 64 %; RBC MORPH NORMAL
== END ==
LOC: LAB 10:19
DX: M54.16 Radiculopathy, lumbar region (principal)
CPT/HCPCS: 36415; 80048; 85007; 85027; 85610; 85730; 93005

== ENCOUNTER 2022-06-22 22:07 | Emergency (ER) | payer SELFPAY ==
[~2022-06-22] VITALS: Ht 170.2 cm; Wt 130.0 kg
[2022-06-22] MEDS ORDERED: D5 NS 1000 ML IV SOLUTION 1,000 ML IV ONE (22:30)
[2022-06-22] MEDS ORDERED: DEXTROSE 50% 50 ML (IMS) SYR IV ONE (22:45)
[2022-06-22 22:52] LABS: BASOPHILS # (AUTO) 0.1 10^3/uL (0.0-0.1); BASOPHILS % (AUTO) 1 % (0-10); EOSINOPHILS # (AUTO) 0.1 10^3/uL (0.0-0.3); EOSINOPHILS % (AUTO) 1 % (0-10); HEMATOCRIT 51 % (40-54); HEMOGLOBIN 17.5 g/dL (13.3-17.7); LYMPHOCYTES % (AUTO) 35 % (12-44); MEAN CORPUSCULAR HEMOGLOBIN 31 pg (25-34); MEAN CORPUSCULAR HGB CONC 34 g/dL (32-36); MEAN CORPUSCULAR VOLUME 91 fL (80-99); MEAN PLATELET VOLUME 10.4 fL (9.0-12.2); MONOCYTES # (AUTO) 1.5 10^3/uL (0.0-1.0); MONOCYTES % (AUTO) 8 % (0-12); NEUTROPHILS # (AUTO) 11.3 10^3/uL (1.8-7.8); NEUTROPHILS % (AUTO) 56 % (42-75); PLATELET COUNT 254 10^3/uL (130-400); WHITE BLOOD COUNT 20.2 10^3/uL (4.3-11.0)
[2022-06-22] MEDS ORDERED: CEFEPIME INJECTION 1,000 MG in NS (IVPB) 50 ML IV ONE (23:00)
[2022-06-22 23:03] LABS: ALBUMIN 4.5 GM/DL (3.2-4.5); POTASSIUM 4.9 MMOL/L (3.6-5.0)
[2022-06-22 23:04] LABS: CALCIUM 9.9 MG/DL (8.5-10.1)
[2022-06-22 23:05] LABS: TOTAL PROTEIN 8.7 GM/DL (6.4-8.2)
[2022-06-22 23:07] LABS: BILIRUBIN,TOTAL 0.5 MG/DL (0.1-1.0)
[2022-06-22 23:09] LABS: CREATININE SERUM 13.66 MG/DL (0.60-1.30)
[2022-06-22 23:12] LABS: MAGNESIUM 2.9 MG/DL (1.6-2.4)
[2022-06-22 23:14] LABS: LYMPHOCYTES % (MANUAL) 38 %; MONOCYTES % (MANUAL) 8 %; NEUTROPHILS % (MANUAL) 54 %
--- NOTE | 2022-06-22 23:27 | ED General ---
General Chief Complaint: Glucose Problems Stated Complaint: LOW BLOOD SUGAR Source of Information: Patient, Other (FEMALE S.O. TRIES TO DO ALL TALKING FOR PT) History of Present Illness Date Seen by Provider: Jun 22, 2022 Time Seen by Provider: 22:20 Initial Comments PT ARRIVES VIA POV FROM HOME C/O LOW BLOOD SUGAR PT HAS BEEN TIRED AND SLEPT ALL DAY TODAY ATE BREAKFAST --SAUSAGE AND EGGS--EARLY THIS MORNING, THEN NOTHING ELSE TO EAT ALL DAY UNTIL A LETTUCE SALAD THIS EVENING AROUND 1800 BEGAN HAVING DIZZINESS AROUND 1900, CHECKED HIS BLOOD SUGAR AND IT WAS 92. HE ATE AN APPLE AND PEANUT BUTTER, AND THEN RECHECKED BLOOD SUGAR AND IT WAS 93 THE THEN BEGAN TO HAVE NAUSEA AND VOMITED X 2 BLOOD GLUCOSE DOWN TO 86 AND THEN DOWN TO 71, SO CAME TO ER PT ATE A LETTUCE SALAD AROUND 1800 TOOK HIS PM METFORMIN AND HIS PM INSULIN--? LANTUS ? AT 2000, DESPITE LOW BLOOD SUGAR READINGS PT HAS HAD DIARRHEA X 1 TODAY HAS HAD NON-PRODUCTIVE COUGH AND CONGESTION THE LAST COUPLE OF DAYS--HAS CHRONIC COUGH DUE TO SMOKING. HAS NOT CHECKED HIS TEMP, BUT HAS NOT FELT LIKE HE HAD FEVER, AND NO SWEATS OR CHILLS NO SHORTNESS OF BREATH NO CHEST PAIN NO SWELLING IN LEGS/ FEET OR PAIN IN CALVES NO ABDOMINAL PAIN URINATING LESS THAN NORMAL TODAY AND IT HAS BEEN VERY DARK. LATER STATES THAT HIS BACK HAS BEEN ACHING MORE TODAY PCP: NO[facility] Allergies and Home Medications Allergies Coded Allergies: ibuprofen (Verified Allergy, Severe, RASH, 06/06/20) iodine (Verified Allergy, Unknown, 06/20/17) Patient Home Medication List Home Medication List Reviewed: Yes Atorvastatin Calcium (Atorvastatin Calcium) 20 Mg Tablet, 20 MG PO DAILY, (Reported) Entered as Reported by: BHARGAV PAEZ on 06/08/20926 Cetirizine HCl (Zyrtec) 10 Mg Tablet, 10 MG PO DAILY PRN for ALLERGY SYMPTOMS, (Reported) Entered as Reported by: BHARGAV PAEZ on 06/08/20926 Famotidine (Pepcid) 20 Mg Tablet, 20 MG PO BID PRN for HEARTBURN, (Reported) Entered as Reported by: BHARGAV PAEZ on 06/08/20926 Gabapentin (Gabapentin) 100 Mg Capsule, 100 MG PO TID PRN for PAIN-BREAKTHROUGH, (Reported) Entered as Reported by: BHARGAV PAEZ on 06/08/20926 Insulin Aspart (Novolog Flexpen) 300 Units/3 Ml Solution, 20 UNITS SQ AC Prescribed by: MELINA CHERRY on 06/08/20932 Insulin Detemir (Levemir Flextouch) 100 Unit/1 Ml Insuln.pen, 40 UNIT SQ BID Prescribed by: MELINA CHERRY on 06/08/20932 Lorazepam (Ativan) 0.5 Mg Tablet, 0.5 MG PO HS PRN for SLEEP, (Reported) Entered as Reported by: BHARGAV PAEZ on 06/08/20926 Montelukast Sodium (Montelukast Sodium) 10 Mg Tablet, 10 MG PO DAILY PRN for ALL ERGY SYMPTOMS, (Reported) Entered as Reported by: BHARGAV PAEZ on 06/08/20926 Nabumetone (Nabumetone) 750 Mg Tablet, 750 MG PO BID PRN for PAIN-BREAKTHROUGH, (Reported) Entered as Reported by: BHARGAV PAEZ on 06/08/20926 Pen Needle, Diabetic (Advocate Pen Needle) 1 Each Dis.needle, EACH ACHS, (DME ) Prescribed by: MELINA CHERRY on 06/08/20932 Tramadol HCl (Tramadol HCl) 50 Mg Tablet, 50 MG PO DAILY PRN for PAIN-MILD (1- 4), (Reported) Entered as Reported by: BHARGAV PAEZ on 06/08/20926 Varenicline Tartrate (Chantix) 1 Mg Tablet, 1 MG PO BID PRN for SMOKING URGES, (Reported) Entered as Reported by: BHARGAV PAEZ on 06/08/20926 Review of Systems Review of Systems Constitutional: see HPI, dizziness, malaise, weakness EENTM: see HPI, nose congestion Respiratory: see HPI, cough; No dyspnea on exertion, No orthopnea, No short of breath, No wheezing Cardiovascular: no symptoms reported; No chest pain, No edema, No palpitations, No syncope Gastrointestinal: see HPI; No abdominal pain; diarrhea, loss of appetite, nausea, vomiting Genitourinary: decreased output Musculoskeletal: no symptoms reported Skin: no symptoms reported Psychiatric/Neurological: No Symptoms Reported Hematologic/Lymphatic: No Symptoms Reported Immunological/Allergic: no symptoms reported Past Yensmau-Cesjje-Xemnvk Hx Patient Social History Tobacco Use?: Yes Tobacco type used: Cigarettes Smoking Status: Current Everyday Smoker Use of E-Cig and/or Vaping dev: No Substance use?: No Alcohol Use?: No Pt feels they are or have been: No Immunizations Up To Date Tetanus Booster (TDap): Unknown Influenza Vaccine Up-to-Date: No; Not Current First/Initial COVID19 Vaccinat: UNK Second COVID19 Vaccination Marvin: UNK Third COVID19 Vaccination Date: UNK Seasonal Allergies Seasonal Allergies: No Past Medical History Surgery/Hospitalization HX: DM 2 Surgeries: Yes (SPINAL STIMULATOR 11/2021) Orthopedic Respiratory: No Cardiac: Yes High Cholesterol, Hypertension Neurological: No Genitourinary: No Gastrointestinal: No Musculoskeletal: Yes Chronic Back Pain Endocrine: Yes (DX 06/2020-GLUCOSE 1021 AT THAT TIME. ) Diabetes, Insulin dep (INSULIN + METFORMIN) HEENT: No Cancer: No Psychosocial: No Integumentary: No Blood Disorders: No Family Medical History Physical Exam Vital Signs Vital Signs - First Documented 06/22/22 22:28 Temp 36.6 Pulse 79 Resp 16 B/P (MAP) 93/58 (70) Pulse Ox 98 O2 Delivery Room Air Capillary Refill : Height, Weight, BMI Height: 5'7.00" Weight: 225lbs. oz. 102.892944ef; 41.00 BMI Method:Stated General Appearance: No Apparent Distress, WD/WN, Other (REEKS OF CIGARETTES. ) HEENT: PERRL/EOMI, Normal ENT Inspection Neck: Normal Inspection Respiratory: Normal Breath Sounds, No Accessory Muscle Use, No Respiratory Distress Cardiovascular: Regular Rate, Rhythm, No Edema, No JVD, No Murmur Gastrointestinal: Normal Bowel Sounds, No Pulsatile Mass, Non Tender, Soft Back: No CVA Tenderness Extremity: Normal Capillary Refill, Normal Inspection, Normal Range of Motion, Non Tender, No Calf Tenderness, No Pedal Edema Neurologic/Psychiatric: Alert, Oriented x3, No Motor/Sensory Deficits, substance abuse prevention coordinator II- XII Norm as Tested, Other (FLAT AFFECT) Skin: Normal Color (PT IS BLACK), Warm/Dry Focused Exam Sepsis Stage: Sepsis Possible Source: Unknown Lactate Level 06/22/22 23:59: Lactic Acid Level 1.97 Time of Focused Exam: 23:45 Respiratory: Normal Breath Sounds, No Accessory Muscle Use, No Respiratory Distress Cardiovascular: Regular Rate, Rhythm, No Murmur Capillary Refill: Less Than 3 Seconds Skin: normal color, warm/dry Lactic Acid Level Laboratory Tests Test 06/22/22 23:59 Lactic Acid Level 1.97 MMOL/L (0.50-2.00) Within 3hrs of presentation: Admin fluids, Admin ABX, Blood cultures prior to ABX's, Focus exam, Lactate level Progress/Results/Core Measures Suspected Sepsis SIRS Temperature: Pulse: Respiratory Rate: Laboratory Tests 06/22/22 22:30: White Blood Count 20.2H Blood Pressure / Mean: 06/22/22 23:59: Lactic Acid Level 1.97 Laboratory Tests 06/22/22 22:30: Creatinine 13.66H, INR Comment 1.0, Platelet Count 254, Total Bilirubin 0.5 Results/Orders Lab Results Laboratory Tests Test 06/22/22 22:30 06/22/22 22:31 06/22/22 22:46 06/22/22 23:50 Range/Units White Blood Count 20.2 H 4.3-11.0 10^3/uL Red Blood Count 5.58 H 4.30-5.52 10^6/uL Hemoglobin 17.5 13.3-17.7 g/dL Hematocrit 51 40-54 % Mean Corpuscular Volume 91 80-99 fL Mean Corpuscular Hemoglobin 31 25-34 pg Mean Corpuscular Hemoglobin Concent 34 32-36 g/dL Red Cell Distribution Width 12.4 10.0-14.5 % Platelet Count 254 130-400 10^3/uL Mean Platelet Volume 10.4 9.0-12.2 fL Immature Granulocyte % (Auto) 1 % Neutrophils (%) (Auto) 56 42-75 % Lymphocytes (%) (Auto) 35 12-44 % Monocytes (%) (Auto) 8 0-12 % Eosinophils (%) (Auto) 1 0-10 % Basophils (%) (Auto) 1 0-10 % Neutrophils # (Auto) 11.3 H 1.8-7.8 10^3/uL Lymphocytes # (Auto) 7.0 H 1.0-4.0 10^3/uL Monocytes # (Auto) 1.5 H 0.0-1.0 10^3/uL Eosinophils # (Auto) 0.1 0.0-0.3 10^3/uL Basophils # (Auto) 0.1 0.0-0.1 10^3/uL Immature Granulocyte # (Auto) 0.1 0.0-0.1 10^3/uL Neutrophils % (Manual) 54 % Lymphocytes % (Manual) 38 % Monocytes % (Manual) 8 % Macrocytosis MODERATE Prothrombin Time 13.8 12.2-14.7 SEC INR Comment 1.0 0.8-1.4 Activated Partial Thromboplast Time 35 24-35 SEC Sodium Level 142 135-145 MMOL/L Potassium Level 4.9 3.6-5.0 MMOL/L Chloride Level 105 98-107 MMOL/L Carbon Dioxide Level 15 L 21-32 MMOL/L Anion Gap 22 H 5-14 MMOL/L Blood Urea Nitrogen 72 H 7-18 MG/DL Creatinine 13.66 H 0.60-1.30 MG/DL Estimat Glomerular Filtration Rate 4 BUN/Creatinine Ratio 5 Glucose Level 42 *L 70-105 MG/DL Calcium Level 9.9 8.5-10.1 MG/DL Corrected Calcium 9.5 8.5-10.1 MG/DL Magnesium Level 2.9 H 1.6-2.4 MG/DL Total Bilirubin 0.5 0.1-1.0 MG/DL Aspartate Amino Transf (AST/SGOT) 26 5-34 U/L Alanine Aminotransferase (ALT/SGPT) 39 0-55 U/L Alkaline Phosphatase 116 40-136 U/L Total Protein 8.7 H 6.4-8.2 GM/DL Albumin 4.5 3.2-4.5 GM/DL Amylase Level 238 H 25-125 U/L Lipase 202 H 8-78 U/L Procalcitonin 0.55 H <0.10 NG/ML Glucometer 40 *L 70-110 MG/DL Influenza Type A (RT-PCR) Not Detected Not Detecte Influenza Type B (RT-PCR) Not Detected Not Detecte SARS-CoV-2 RNA (RT-PCR) Detected H Not Detecte Urine Color YELLOW Urine Clarity CLEAR Urine pH 5.0 5-9 Urine Specific Ernul >=1.030 1.016-1.022 Urine Protein 1+ H NEGATIVE Urine Glucose (UA) NEGATIVE NEGATIVE Urine Ketones TRACE H NEGATIVE Urine Nitrite NEGATIVE NEGATIVE Urine Bilirubin 1+ H NEGATIVE Urine Urobilinogen 0.2 < = 1.0 MG/DL Urine Leukocyte Esterase TRACE H NEGATIVE Urine RBC (Auto) TRACE-I H NEGATIVE Urine RBC 0-2 /HPF Urine WBC 5-10 H /HPF Urine Squamous Epithelial Cells 0-2 /HPF Urine Crystals NONE /LPF Urine Bacteria FEW H /HPF Urine Casts PRESENT /LPF Urine Hyaline Casts 10-25 H /LPF Urine Mucus NEGATIVE /LPF Urine Culture Indicated CULTURE PENDING Urine Opiates Screen NEGATIVE NEGATIVE Urine Oxycodone Screen NEGATIVE NEGATIVE Urine Methadone Screen NEGATIVE NEGATIVE Urine Propoxyphene Screen NEGATIVE NEGATIVE Urine Barbiturates Screen NEGATIVE NEGATIVE Ur Tricyclic Antidepressants Screen NEGATIVE NEGATIVE Urine Phencyclidine Screen NEGATIVE NEGATIVE Urine Amphetamines Screen NEGATIVE NEGATIVE Urine Methamphetamines Screen NEGATIVE NEGATIVE Urine Benzodiazepines Screen NEGATIVE NEGATIVE Urine Cocaine Screen NEGATIVE NEGATIVE Urine Cannabinoids Screen NEGATIVE NEGATIVE Test 06/22/22 23:59 Range/Units Lactic Acid Level 1.97 0.50-2.00 MMOL/L My Orders Orders - VNAIA LOUIS DO Accucheck Stat ONCE (06/22/22 22:) Ed Iv/Invasive Line Start (06/22/22 22:26) Monitor-Rhythm Ecg Trace Only (06/22/22 22:26) Amylase (06/22/22 22:26) Cbc With Automated Diff (06/22/22 22:) Comprehensive Metabolic Panel (06/22/22 22:26) Drug Screen Stat (Urine) (06/22/22 22:) Lipase (06/22/22 22:) Magnesium (06/22/22 22:26) Ua Culture If Indicated (06/22/22 22:) Covid 19 Inhouse Test (06/22/22 22:26) Ed Iv/Invasive Line Start (06/22/22 22:26) D5 Ns 1000 Ml Iv Solution (Dextrose 5%/0 (06/22/22 22:30) Influenza A And B By Pcr (06/22/22 22:26) Isolation Central Supply Req (06/22/22 22:26) D50w (Emergency) Syringe (Dextrose 50% 5 (06/22/22 22:45) Manual Differential (06/22/22 22:30) Chest 1 View, Ap/Pa Only (06/22/22 22:55) Blood Culture (06/22/22 22:55) Urine Culture (06/22/22 22:55) Protime With Inr (06/22/22 22:55) Partial Thromboplastin Time (06/22/22 22:55) Ed Iv/Invasive Line Start (06/22/22 22:55) Vital Signs Adult Sepsis Patie Q15M (06/22/22 22:55) Remove Rings In Anticipation O (06/22/22 22:55) Lactic Acid Analyzer (06/22/22 22:55) Cefepime Injection (Maxipime Injection) (06/22/22 23:00) Procalcitonin (Pct) (06/22/22 22:55) Accucheck Stat ONCE (06/22/22 23:19) Ed Iv/Invasive Line Start (06/22/22 23:47) Ns Iv 1000 Ml (Sodium Chloride 0.9%) (06/23/22 00:00) Ed Iv/Invasive Line Start (06/23/22 00:12) Ns Iv 1000 Ml (Sodium Chloride 0.9%) (06/23/22 00:15) Ns Iv 1000 Ml (Sodium Chloride 0.9%) (06/23/22 00:30) Accucheck Stat ONCE (06/23/22 01:26) D5 Ns 1000 Ml Iv Solution (Dextrose 5%/0 (06/23/22 01:45) Medications Given in ED Current Medications Medications Dose Ordered Sig/Todd Route Start Time Stop Time Status Last Admin Dose Admin Cefepime HCl 1000 mg/Sodium Chloride 50 ml @ 100 mls/hr ONCE ONCE IV 06/22/22 23:00 06/22/22 23:29 DC 06/23/22 00:06 100 MLS/HR Dextrose 50 ml ONCE ONCE IV 06/22/22 22:45 06/22/22 22:46 DC 06/22/22 22:40 50 ML Dextrose/Sodium Chloride 1,000 ml @ 0 mls/hr Q0M ONCE IV 06/22/22 22:30 06/22/22 22:31 DC 06/22/22 22:40 0 MLS/HR Vital Signs/I&O 06/22/22 22:28 Temp 36.6 Pulse 79 Resp 16 B/P (MAP) 93/58 (70) Pulse Ox 98 O2 Delivery Room Air Capillary Refill : Point of Care Testing Finger Stick Blood Glucose: 40 Blood Glucose Action Taken: ERP NOTIFIED Progress Note : Progress Note PPE WORN COVID AND FLU TESTING DONE ACCUCHECK 40 ON ARRIVAL GIVEN D50 AND D5 NS X 1 LITER GLUCOSE UP TO 311 PT STATES HE FEELS MUCH BETTER AND PT IS MORE ANIMATED AND MORE TALKATIVE. PLACED ON NS X 2 LITERS AFTER THAT GLUCOSE DOWN TO 81 AT TIME OF TRANSFER, AND ADDITIONAL D5NS ORDERED SEPSIS PROTOCOL INITIATED AFTER RECEIVING CBC RESULTS GIVEN CEFEPIME OCCASIONAL NON-PRODUCTIVE COUGH NO DYSPNEA NO HYPOXIA NO FEVER NO GI SYMPTOMS DURING UC STAY BP UP TO 120 SYSTOLIC AFTER 3 LITERS OF FLUIDS HR REMAINS IN 70'S O2 SAT 98% ON ROOM AIR OUTPATIENT LAB DONE BEFORE HIS SURGERY FOR SPINAL STIMULATOR 11/2021: -BUN 9, CR 0.9 Diagnostic Imaging Comments CXR--NO ACUTE PROCESS, PENDING RADIOLOGIST REVIEW Reviewed: Reviewed by Me Departure Communication (Admissions) 5024--CALLED [facility], WILL CALL BACK. FACE SHEET FAXED TO THEM. 0005--SPOKE WITH DR. ARGUELLO, HOSPITALIST, ADVISES TO CONTACT [facility]. 0028--SPOKE WITH DR. MARTINS, [facility], ACCEPTS PT FOR ADMIT TO ICU. 0120--EMS HERE FOR TRANSPORT Impression Primary Impression: Acute renal failure Additional Impressions: COVID-19 virus infection Hypoglycemia associated with type 2 diabetes mellitus Sepsis Pancreatitis UTI (urinary tract infection) Disposition: XFER SHT-TRM HOSP Condition: Improved Transfer Transfer Reason: Exceeds level of care (MULTISPECIALTY CARE INCLUDING NEPH ROLOGY SERVICES) Transfer Facility: [facility] Method of Transfer: EMS Departure-Patient Inst. Referrals: [facility] (PCP/Family) Primary Care Physician VANIA LOUIS DO Jun 22, 2022 23:27
[2022-06-22 23:30] LABS: PROTHROMBIN TIME PATIENT 13.8 SEC (12.2-14.7)
[2022-06-23] LABS: BILIRUBIN,URINE 1+ (NEGATIVE); CLARITY,URINE CLEAR; COLOR,URINE YELLOW; GLUCOSE, URINE (UA) NEGATIVE (NEGATIVE); KETONES,URINE TRACE (NEGATIVE); LEUKOCYTE ESTERASE ,URINE TRACE (NEGATIVE); NITRITE,URINE NEGATIVE (NEGATIVE); PROTEIN,URINE 1+ (NEGATIVE)
[2022-06-23 00:10] LABS: BACTERIA,URINE FEW /HPF; RBC,URINE 0-2 /HPF; SQUAMOUS EPITHELIAL CELL,UR 0-2 /HPF
[2022-06-23] MEDS ORDERED: NS IV 1000 ML 1,000 ML IV SCH ×2 (00:15)
[2022-06-23 00:18] LABS: AMPHETAMINE SCREEN, URINE NEGATIVE (NEGATIVE); BARBITURATE SCREEN URINE NEGATIVE (NEGATIVE); BENZODIAZEPINES SCREEN URINE NEGATIVE (NEGATIVE); CANNABINOID SCREEN, URINE NEGATIVE (NEGATIVE); COCAINE SCREEN URINE NEGATIVE (NEGATIVE); METHADONE STAT NEGATIVE (NEGATIVE); OPIATE SCREEN URINE NEGATIVE (NEGATIVE); OXYCODONE STAT NEGATIVE (NEGATIVE); PROPOXYPHENE STAT NEGATIVE (NEGATIVE); TRICYCLIC ANTIDEPRESSANTS SCRE NEGATIVE (NEGATIVE)
[2022-06-23] MEDS ORDERED: NS IV 1000 ML 1,000 ML ONE (00:30)
[2022-06-23 01:38] VITALS: BP 105/62
[2022-06-23] MEDS ORDERED: D5 NS 1000 ML IV SOLUTION 1,000 ML IV SCH (01:45)
--- NOTE | 2022-06-23 06:04 | Diagnostic Imaging Report ---
INDICATION: Cough Single AP view of the chest is obtained with comparison made to the study of 06/07/2020. FINDINGS: Heart size and pulmonary vascularity are within normal limits, and the lungs are clear, bilaterally. IMPRESSION: Unremarkable chest. Dictated by: Dictated on workstation # [id number]
== END 2022-06-23 01:38 | disposition short-term general hospital (02) ==
LOC: EDUNIT# 22:07 → ER 22:08
DX: U07.1 COVID-19 (principal); A41.9 Sepsis, unspecified organism; N39.0 Urinary tract infection, site not specified; K85.90 Acute pancreatitis without necrosis or infection, unspecified; E11.649 Type 2 diabetes mellitus with hypoglycemia without coma; N17.9 Acute kidney failure, unspecified; F17.210 Nicotine dependence, cigarettes, uncomplicated; Z20.822 Contact with and (suspected) exposure to COVID-19; Z79.4 Long term (current) use of insulin; Z79.84 Long term (current) use of oral hypoglycemic drugs
CPT/HCPCS: 36415; 71045; 80053; 80306; 81000; 82150; 82947; 83605; 83690; 83735; 84145; 85007; 85027; 85610; 85730; 87040; 87088; 87636; 93041; 99291